=== PATIENT | female | born 1980 | race Caucasian/White ===

== ENCOUNTER 2017-02-23 04:32 | Emergency (ER) | payer OTHER ==
[~2017-02-23] VITALS: Ht 162.6 cm; Wt 93.0 kg
[~2017-02-23 04:32] MED LIST: IMT50 PO; OMEP40CA41 PO; RBX500 PO
[2017-02-23 04:36] VITALS: Ht 162.6 cm; Wt 93.0 kg
[2017-02-23] MEDS ORDERED: ONDANSETRON INJ 2 MG/ML 2 ML VIAL IV STA (04:55)
[2017-02-23] MEDS ORDERED: SODIUM CHLORIDE 0.9% 1000ML 1,000 ML IV ONE (05:00)
[2017-02-23] MEDS ORDERED: GI COCKTAIL PO ONE (05:00)
[2017-02-23] MEDS ORDERED: MoRPHine SULFATE 4 MG/ML 1 ML CARP\\VIAL IV ONE (05:00)
[2017-02-23] MEDS ORDERED: PROC1TAB5 PO (05:02)
[2017-02-23] MEDS ORDERED: LANS30CA12 PO (05:02)
[2017-02-23] MEDS ORDERED: BCPILLS PO (05:02)
[2017-02-23 05:17] LABS: BASO % 0.2 %; BASO ABS # 0.02 K/uL (0-0.2); COMPLETE YES; EOS % 3.1 %; IG% 0.2 %; LYMPH % 41.4 %; LYMPH ABS # 3.36 K/uL (1.2-3.4); MEAN CELL VOLUME 91.3 fL (80-100); MEAN CORPUSCULAR HEMOGLOBIN 31.1 pg (25-34); MEAN PLATELET VOLUME 9.8 fL (7.4-10.4); MONO % 5.2 %; NEUT % 49.9 %; PLATELET COUNT 374 K/uL (130-400); RED BLOOD COUNT 4.38 M/uL (4.2-5.4); WHITE BLOOD COUNT 8.11 K/uL (4.8-10.8)
[2017-02-23] MEDS ORDERED: ALUMINUM/MAGNESIUM SUSP 30 ML UDC ONE (05:30)
[2017-02-23] MEDS ORDERED: LIDOCAINE HCL 2% VISC SOLN 20 ML UDC ONE (05:30)
[2017-02-23 05:34] LABS: BUN/CREATININE RATIO 20.6 (10-20); CALCIUM 8.9 mg/dl (8.5-10.1); CREATININE 0.65 mg/dl (0.60-1.20); POTASSIUM 3.4 mmol/L (3.5-5.1)
[2017-02-23 05:37] LABS: ALB/GLOB RATIO 1.1 (0.9-2)
[2017-02-23 05:43] LABS: URINE APPEARANCE CLEAR (CLEAR); URINE BILIRUBIN NEG (NEG); URINE COLOR DK YELLOW; URINE NITRITE NEG (NEG); URINE PH 6.5 (4.5-7.5); URINE SPECIFIC GRAVITY 1.021 (1.000-1.030); UROBILINOGEN NEG (NEG); ZZUR CULT IF INDIC CLEAN CATCH NO
[2017-02-23 05:45] LABS: MANUAL MICROSCOPIC REQUIRED? NO; REVIEW REQ? NO
[2017-02-23 06:25] VITALS: TEMP 36.5
--- NOTE | 2017-02-23 06:59 | DIAGNOSTIC IMAGING REPORT ---
Pain. Nausea. GALLBLADDER-ABD LIMITED CLINICAL HISTORY: Epigastric abd pain pain TECHNIQUE: Ultrasound COMPARISON STUDY: None FINDINGS: Gallstones within a slightly contracted gallbladder. Common bile duct 4 mm. No pericholecystic fluid. Liver is uniform. Pancreas and right kidney are unremarkable. No evidence for hydronephrosis. IMPRESSION: Gallstones in a slightly contracted gallbladder. Normal caliber bile ducts. Otherwise negative study. Electronically signed by: Nate Arrieta M.D. 02/23/2017 6:57 AM Dictated Date/Time: 02/23/2017 6:56 AM
--- NOTE | 2017-02-23 07:06 | DIAGNOSTIC IMAGING REPORT ---
ABDOMEN 2VIEW W/PA CHEST RTN CLINICAL HISTORY: Epigastric abd pain pain. Nausea. COMPARISON STUDY: No previous studies for comparison. FINDINGS: The soft tissues, psoas shadows, renal outlines and intestinal gas pattern appear normal. There is no evidence for bowel obstruction. There is no evidence for free intraperitoneal air. No abnormal abdominal calcifications are seen. A frontal view of the chest was performed and is unremarkable. IMPRESSION: Normal study. Electronically signed by: Nate Arrieta M.D. 02/23/2017 7:04 AM Dictated Date/Time: 02/23/2017 7:04 AM
[2017-02-23 07:19] VITALS: BP 125/89; PULSE 68; O2SAT 99
--- NOTE | 2017-02-23 07:35 | EMERGENCY ROOM VISIT NOTE ---
History First contact with patient: 04:41 Chief Complaint: GI ASSESSMENT Stated Complaint: EPIGASTRIC PAIN History of Present Illness The patient is a 36 year old female who presents to the Emergency Room with complaints of epigastric abdominal pain that began roughly 2 hours prior to arrival. The patient states her pain is a tightness in her epigastrium and does not radiate. She has not had nausea or vomiting. No lower abdominal tenderness. At times she felt like her symptoms may include right upper quadrant tenderness. The patient is a neurologist locally and has not taken anything [id number] for her symptoms. She has had some head cold symptoms for the past several days, and does relate that she is taking over-the- counter ibuprofen and Tylenol at an increased risk from normal. The patient does not believe that she is . No difficulty eating or drinking. She does not identify aggravating or alleviating factors. Review of Systems More than 10 systems were reviewed and otherwise negative with the exception of history of present illness. Past Medical/Surgical History Medical Problems: (1) Migraines Family History Cancer Social History Smoking Status: Never Smoker Alcohol Use: none Drug Use: none Marital Status: Housing Status: lives with family Occupation Status: employed Current/Historical Medications Scheduled Control Pills ( Control Pills), 1 TAB PO DAILY Lansoprazole (Prevacid), 30 MG PO DAILY Scheduled PRN Methocarbamol (Methocarbamol), 500 MG PO BID PRN for Muscle Spasms Prochlorperazine Maleate (Compazine), 10 MG PO Q6H PRN for Nausea Sumatriptan Succinate (Sumatriptan Succinate), 50 MG PO UD PRN for Migraine Allergies Coded Allergies: No Known Allergies (Unverified , 02/23/17) Physical Exam Vital Signs Date Time Temp Pulse Resp B/P (MAP) Pulse Ox O2 Delivery O2 Flow Rate FiO2 02/23/17 07:19 68 18 125/89 99 02/23/17 06:25 36.5 70 126/89 99 Room Air 02/23/17 04:36 36.3 95 18 140/86 100 Room Air Pain Rating (0-10): 1.0 Physical Exam VITALS: Vitals are noted on the nurse's note and reviewed by myself. Vital signs stable. GENERAL: Well-developed, well-nourished, white female, who is in no acute distress and resting comfortably. Patient is cooperative with the examination. HEART: Regular rate and rhythm without murmurs gallops or rubs. LUNGS: Clear to auscultation bilaterally without wheezes, rales or rhonchi. No retractions or accessory muscle use. ABDOMEN: Positive normal bowel sounds x 4. Soft with positive epigastric Georges tenderness. No rebound or guarding. No lower abdominal tenderness. No CVA tenderness. MUSCULOSKELETAL: No muscle atrophy, erythema, or edema noted. Full range of motion without joint tenderness in all extremities. Medical Decision & Procedures ER Provider Diagnostic Interpretation: ABDOMEN 2VIEW W/PA CHEST RTN CLINICAL HISTORY: Epigastric abd pain pain. Nausea. COMPARISON STUDY: No previous studies for comparison. FINDINGS: The soft tissues, psoas shadows, renal outlines and intestinal gas pattern appear normal. There is no evidence for bowel obstruction. There is no evidence for free intraperitoneal air. No abnormal abdominal calcifications are seen. A frontal view of the chest was performed and is unremarkable. IMPRESSION: Normal study. Pain. Nausea. GALLBLADDER-ABD LIMITED CLINICAL HISTORY: Epigastric abd pain pain TECHNIQUE: Ultrasound COMPARISON STUDY: None FINDINGS: Gallstones within a slightly contracted gallbladder. Common bile duct 4 mm. No pericholecystic fluid. Liver is uniform. Pancreas and right kidney are unremarkable. No evidence for hydronephrosis. IMPRESSION: Gallstones in a slightly contracted gallbladder. Normal caliber bile ducts. Otherwise negative study. Laboratory Results 02/23/17 05:00 Red Blood Count 4.38, Mean Corpuscular Volume 91.3, Mean Corpuscular Hemoglobin 31.1, Mean Corpuscular Hemoglobin Concent 34.0, Mean Platelet Volume 9.8, Neutrophils (%) (Auto) 49.9, Lymphocytes (%) (Auto) 41.4, Monocytes (%) (Auto) 5.2, Eosinophils (%) (Auto) 3.1, Basophils (%) (Auto) 0.2, Neutrophils # (Auto) 4.04, Lymphocytes # (Auto) 3.36, Monocytes # (Auto) 0.42, Eosinophils # (Auto) 0.25, Basophils # (Auto) 0.02 02/23/17 05:00 Test 02/23/17 05:00 02/23/17 05:09 02/23/17 05:25 White Blood Count 8.11 K/uL (4.8-10.8) Red Blood Count 4.38 M/uL (4.2-5.4) Hemoglobin 13.6 g/dL (12.0-16.0) Hematocrit 40.0 % (37-47) Mean Corpuscular Volume 91.3 fL (80-100) Mean Corpuscular Hemoglobin 31.1 pg (25-34) Mean Corpuscular Hemoglobin Concent 34.0 g/dl (32-36) Platelet Count 374 K/uL (130-400) Mean Platelet Volume 9.8 fL (7.4-10.4) Neutrophils (%) (Auto) 49.9 % Lymphocytes (%) (Auto) 41.4 % Monocytes (%) (Auto) 5.2 % Eosinophils (%) (Auto) 3.1 % Basophils (%) (Auto) 0.2 % Neutrophils # (Auto) 4.04 K/uL (1.4-6.5) Lymphocytes # (Auto) 3.36 K/uL (1.2-3.4) Monocytes # (Auto) 0.42 K/uL (0.11-0.59) Eosinophils # (Auto) 0.25 K/uL (0-0.5) Basophils # (Auto) 0.02 K/uL (0-0.2) RDW Standard Deviation 44.2 fL (36.4-46.3) RDW Coefficient of Variation 13.1 % (11.5-14.5) Immature Granulocyte % (Auto) 0.2 % Immature Granulocyte # (Auto) 0.02 K/uL (0.00-0.02) Anion Gap 8.0 mmol/L (3-11) Est Creatinine Clear Calc Drug Dose 132.3 ml/min Estimated GFR () 132.4 Estimated GFR (Non- 114.2 BUN/Creatinine Ratio 20.6 (10-20) Calcium Level 8.9 mg/dl (8.5-10.1) Total Bilirubin 0.4 mg/dl (0.2-1) Aspartate Amino Transf (AST/SGOT) 14 U/L (15-37) Alanine Aminotransferase (ALT/SGPT) 23 U/L (12-78) Alkaline Phosphatase 54 U/L (45-117) Total Protein 6.7 gm/dl (6.4-8.2) Albumin 3.5 gm/dl (3.4-5.0) Globulin 3.2 gm/dl (2.5-4.0) Albumin/Globulin Ratio 1.1 (0.9-2) Amylase Level 37 U/L (25-115) Lipase 121 U/L (73-393) Bedside Troponin I < 0.030 ng/ml (0-0.045) Urine Color DK YELLOW Urine Appearance CLEAR (CLEAR) Urine pH 6.5 (4.5-7.5) Urine Specific Wisner 1.021 (1.000-1.030) Urine Protein NEG (NEG) Urine Glucose (UA) NEG (NEG) Urine Ketones NEG (NEG) Urine Occult Blood NEG (NEG) Urine Nitrite NEG (NEG) Urine Bilirubin NEG (NEG) Urine Urobilinogen NEG (NEG) Urine Leukocyte Esterase NEG (NEG) Urine Test NEG (NEG) Medications Administered Medications (Trade) Dose Ordered Sig/Aura Route Start Time Stop Time Status Last Admin Dose Admin Sodium Chloride 1,000 ml @ 999 mls/hr Q1H1M ONCE IV 02/23/17 05:00 02/23/17 06:00 DC 02/23/17 05:17 999 MLS/HR Miscellaneous Medication (Gi Cocktail) 24 ml NOW ONCE PO 02/23/17 05:00 02/23/17 05:01 DC 02/23/17 05:17 24 ML Al Hydroxide/Mg Hydroxide (Maalox Susp) 30 ml STK-MED ONCE .ROUTE 02/23/17 05:30 02/23/17 05:31 DC 02/23/17 05:17 30 ML Lidocaine HCl (Viscous Lidocaine 2% Soln) 20 ml STK-MED ONCE .ROUTE 02/23/17 05:30 02/23/17 05:31 DC 02/23/17 05:17 20 ML ED Course Physical exam and history were performed. Nursing notes and EMR were reviewed. Patient appears to have epigastric abdominal pain that began less than 2 hours ago. The patient does have tenderness in the epigastrium. IV access was established and labs were obtained. The patient was hydrated with normal saline and given a GI cocktail. I discussed options of care at length with the patient and we elected to perform plain films and ultrasound. The patient's blood work is as above and was reviewed. She does not have a significant elevated white blood cell count, gross anemia, bandemia, or significant electrolyte imbalance. Amylase and lipase are nondiagnostic. LFTs are without significant findings. Plain films are without significant findings. Ultrasound shows gallstones but no acute cholecystitis. I discussed the case with my attending physician, Dr. Barton, who also independently evaluated the patient. Overall the patient appears well and stable for discharge home. The patient is already on a PPI and is to continue this. She was certainly invited back to the emergency department with any new, worsening, or concerning symptoms. The chart was completed utilizing [employer] Voice Recognition Software. Grammatical errors, random word insertions, pronoun errors, and incomplete sentences are an occasional consequence of this system due to software limitations, ambient noise, and hardware issues. Any formal questions or concerns about the content, text, or information contained within the body of this dictation should be directly addressed to the provider for clarification. . Medical Decision Differential diagnosis: Etiologies such as appendicitis, diverticulitis, PUD, biliary pathology, UTI, pancreatitis, obstruction, mesenteric ischemia, aortic pathology, infections, inflammatory bowel disease, renal colic, as well as others were entertained. Impression Primary Impression: Epigastric abdominal pain Departure Information Dispostion Home / Self-Care Condition GOOD Forms HOME CARE DOCUMENTATION FORM, IMPORTANT VISIT INFORMATION Patient Instructions My [facility] Additional Instructions You were seen and evaluated today on an emergency basis only. This is not a substitute for, or an effort to provide, complete comprehensive medical care. It is not possible to recognize and treat all injuries or illnesses in a single emergency department visit. For this reason it is recommended that you followup with your primary care physician with any ongoing or persistent symptoms. Continue your medications at home The ultrasound does show gallstones without evidence of cholecystitis You are welcome to return to the emergency department anytime with new, worsening, or concerning symptoms.
== END 2017-02-23 07:19 | disposition home or self-care (01) ==
LOC: C.EDB 04:33
DX: R10.13 Epigastric pain (principal); Z80.9 Family history of malignant neoplasm, unspecified; Z79.3 Long term (current) use of hormonal contraceptives; Z79.899 Other long term (current) drug therapy

== ENCOUNTER → 2017-03-17 | Outpatient (CLI) | payer OTHER ==
[~2017-03-17] MED LIST changes: +BCPILLS PO; +LANS30CA12 PO; -OMEP40CA41 PO; +PROC1TAB5 PO
[2017-03-17 12:11] LABS: CHOLESTEROL/HDL RATIO 3.1; THYROID STIMULATING HORMONE 1.93 uIu/ml (0.300-4.500)
== END | disposition home or self-care (01) ==
LOC: C.LABBC 07:45
PROVIDERS: ATTEND Internal Medicine
DX: Z13.220 Encounter for screening for lipoid disorders (principal); R63.5 Abnormal weight gain; R26.81 Unsteadiness on feet; Z79.899 Other long term (current) drug therapy; Z13.1 Encounter for screening for diabetes mellitus

== ENCOUNTER → 2017-08-23 | Outpatient (CLI) | payer OTHER ==
[~2017-08-23] MED LIST changes: +ACET-1257 PO; +FRCT/ PO; +LORA10CA2 PO; +MAGN250T3 PO; +MTR600X PO; +OXYC-57 PO; +PRENTAB26 PO; +PROC10TA PO; -PROC1TAB5 PO
== END | disposition home or self-care (01) ==
LOC: C.LAB1850 10:36
PROVIDERS: ATTEND Obstetrics & Gynecology
DX: O09.522 Supervision of elderly multigravida, second trimester (principal); Z3A.00 Weeks of gestation of pregnancy not specified

== ENCOUNTER → 2017-11-07 | Outpatient (CLI) | payer OTHER ==
[~2017-11-07] MED LIST changes: -ACET-1257 PO; -FRCT/ PO; -LORA10CA2 PO; -MAGN250T3 PO; -MTR600X PO; -OXYC-57 PO; -PRENTAB26 PO; -PROC10TA PO; +PROC1TAB5 PO
[2017-11-07 16:42] LABS: HEMATOCRIT 35.3 % (37-47); HEMOGLOBIN 11.9 g/dL (12.0-16.0)
== END | disposition home or self-care (01) ==
LOC: C.LAB1850 15:04
PROVIDERS: ATTEND Obstetrics & Gynecology
DX: O09.523 Supervision of elderly multigravida, third trimester (principal); Z3A.00 Weeks of gestation of pregnancy not specified

== ENCOUNTER → 2017-11-14 | Outpatient (CLI) | payer OTHER | END | disposition home or self-care (01) | LOC: C.LAB1850 08:10 | PROVIDERS: ATTEND Obstetrics & Gynecology | DX: O28.1 Abnormal biochemical finding on antenatal screening of mother (principal) ==

== ENCOUNTER → 2018-01-09 | Outpatient (CLI) | payer OTHER ==
[~2018-01-09] MED LIST changes: +PROC10TA PO; -PROC1TAB5 PO
== END | disposition home or self-care (01) ==
LOC: C.LABSPEC 16:12
PROVIDERS: ATTEND Obstetrics & Gynecology
DX: O09.523 Supervision of elderly multigravida, third trimester (principal)